=== PATIENT | male | born 1955 | race African-American/Black ===

== ENCOUNTER 2017-02-15 14:50 | Emergency (ER) | payer MEDICAID, OTHER ==
[~2017-02-15] VITALS: Ht 182.9 cm; Wt 66.7 kg
[2017-02-15] MEDS ORDERED: METFORMIN HCL1000 M1 ORAL ×2 (14:59→21:30)
[2017-02-15] MEDS ORDERED: GLIPIZIDE5 MG ORAL (14:59)
[2017-02-15] MEDS ORDERED: LANTUS SOL100 UNIT/1 SUBQ (14:59)
[2017-02-15] MEDS ORDERED: NS 250 ML IV ONE (15:11)
[2017-02-15] MEDS ORDERED: Albuterol ud Inhalation HHN ONE ×3 (15:15→20:15)
[2017-02-15] MEDS ORDERED: Ipratropium 0.02% Inh Soln 2.5ml UD HHN ONE (15:15)
--- NOTE | 2017-02-15 15:21 | Emergency Room Report ---
History of Present Illness General Chief Complaint: Dyspnea/Respdistress Source: Patient Present Illness HPI The patient presents with chest pain shortness of breath. This began when he returned from [facility] in [place] by airplane. He also had vomiting and diarrhea that is just gotten better today. There is occurred for approximately 3 days. He's had chills. He complains of a headache. The chest pain is not exertional. He does feel orthopnea get short of breath when he is laying down. He is using an inhaler which has helped somewhat. Is a history of asthma. He denies any fevers. He feels some dizziness with standing. He has had prednisone in the past. This is not his worst attack. His pain in his chest is 6/10 and pressure. In addition, he has had muscle pain in his upper back. Factors hypertension, diabetes. His blood sugars have been slightly out of control she feels. He does not smoke a. Get exercise treadmill 6 months ago and he says that this was good. He does feel his heart speeding up which is different than what is had asthma attacks in the past. Allergies: Coded Allergies: No Known Allergies (Unverified , 02/15/17) Patient History Past Medical History: see triage record Social History: Denies: smoking Social History Narrative born in [facility] Reviewed Nursing Documentation: PMH: Agreed, PSxH: Agreed Nursing Documentation-PM Past Medical History: No History, Except For Hx Asthma: Yes Hx Diabetes: Yes Review of Systems All Other Systems: negative except mentioned in HPI Physical Exam Vital Signs Date Time Temp Pulse Resp B/P Pulse Ox O2 Delivery O2 Flow Rate FiO2 02/15/17 14:55 98.4 89 16 140/94 97 Room Air Sp02 EP Interpretation: reviewed, normal General Appearance: well appearing, no apparent distress, GCS 15 Head: normocephalic Eyes: bilateral eye PERRL, bilateral eye normal inspection ENT: moist mucus membranes Neck: supple Respiratory: lungs clear, wheezing - minimal anteriorly, expiration Cardiovascular #1: regular rate, rhythm Cardiovascular #2: 2+ radial (R) Gastrointestinal: normal inspection, normal bowel sounds, non tender, no mass, non-distended Musculoskeletal: back normal, gait/station normal, normal range of motion Neurologic: alert, oriented x3, grossly normal Psychiatric: mood/affect normal Skin: normal inspection, warm/dry Medical Decision Making Diagnostic Impression: Primary Impression: Asthma Additional Impression: Viral syndrome ER Course Patient with history of asthma presents with shortness of breath and chest pain. This was factors for cardiac disease in been to exclude acute myocardial infarction. In addition he is at risk for exacerbation of his asthma and we need to exclude pneumonia. Other possibilities are bronchitis and viral syndrome. The GI symptomatology seems to be any better. Evaluation will be with EKG, chest x-ray and labs. The patient will be treated with albuterol and Atrovent. Off on Solu-Medrol until we get electrolytes back and see EKG and chest x-ray. Because his risk factors there is a lower threshold to have him admitted for observation. Patient improved and wants to go home. Recent treadmill (6 months) and angio 1 1/2 years ago = normal. Patient stable for outpatient observation and treatment Laboratory Tests Test 02/15/17 15:30 02/15/17 17:05 White Blood Count 6.0 K/UL (4.8-10.8) Red Blood Count 4.36 M/UL (4.70-6.10) L Hemoglobin 13.2 G/DL (14.2-18.0) L Hematocrit 40.0 % (42.0-52.0) L Mean Corpuscular Volume 92 FL (80-99) Mean Corpuscular Hemoglobin 30.2 PG (27.0-31.0) Mean Corpuscular Hemoglobin Concent 33.0 G/DL (32.0-36.0) Red Cell Distribution Width 12.5 % (11.6-14.8) Platelet Count 144 K/UL (150-450) L Mean Platelet Volume 6.1 FL (6.5-10.1) L Neutrophils (%) (Auto) 44.2 % (45.0-75.0) L Lymphocytes (%) (Auto) 38.0 % (20.0-45.0) Monocytes (%) (Auto) 12.7 % (1.0-10.0) H Eosinophils (%) (Auto) 3.5 % (0.0-3.0) H Basophils (%) (Auto) 1.5 % (0.0-2.0) Prothrombin Time 10.0 SEC (9.30-11.50) Prothrombin Time INR 1.0 (0.9-1.1) PTT 26 SEC (23-33) Urine Color Pale yellow Urine Appearance Clear Urine pH 7 (4.5-8.0) Urine Specific [place] 1.010 (1.005-1.035) Urine Protein Negative (NEGATIVE) Urine Glucose (UA) Negative (NEGATIVE) Urine Ketones Negative (NEGATIVE) Urine Occult Blood Negative (NEGATIVE) Urine Nitrite Negative (NEGATIVE) Urine Bilirubin Negative (NEGATIVE) Urine Urobilinogen Normal MG/DL (0.0-1.0) Urine Leukocyte Esterase Negative (NEGATIVE) Sodium Level 138 mEQ/L (135-145) Potassium Level 3.4 mEQ/L (3.4-4.9) Chloride Level 95 mEQ/L (98-107) L Carbon Dioxide Level 28 mEQ/L (20-30) Anion Gap 15 (5-15) Blood Urea Nitrogen 8 mg/dL (7-23) Creatinine 1.2 mg/dL (0.7-1.2) Estimate Glomerular Filtration Rate > 60 mL/min (>60) Glucose Level 138 mg/dL (74-106) H Lactic Acid Level 2.10 mmol/L (0.66-2.22) 1.90 mmol/L (0.66-2.22) Calcium Level 8.5 mg/dL (8.6-10.2) L Total Bilirubin 0.3 mg/dL (0.0-1.2) Aspartate Amino Transferase (AST) 74 U/L (5-40) H Alanine Aminotransferase (ALT) 43 U/L (3-41) H Alkaline Phosphatase 53 U/L (40-129) Troponin I < 0.30 ng/mL (<=0.30) Pro-B-Type Natriuretic Peptide 275 pg/mL (0-125) H Total Protein 6.9 g/dL (6.6-8.7) Albumin 3.7 g/dL (3.5-5.2) Globulin 3.2 g/dL Albumin/Globulin Ratio 1.1 (1.0-2.7) EKG Diagnostic Results Rate: normal Rhythm: NSR ST Segments: no acute changes - LAD, NSSTTW changes Rhythm Strip Diag. Results EP Interpretation: yes Rhythm: NSR, no PVC's, no ectopy Chest X-Ray Diagnostic Results Chest X-Ray Ordered: Yes Status: improved Disposition: HOME, SELF-CARE Condition: Improved Maikol Pena M.D. Feb 15, 2017 15:21
[2017-02-15 15:37] VITALS: BP 140/94
[2017-02-15 16:32] LABS: BASOPHILS % (AUTO) 1.5 % (0.0-2.0); EOSINOPHILS % (AUTO) 3.5 % (0.0-3.0); MEAN CORPUSCULAR HEMOGLOBIN 30.2 PG (27.0-31.0); MEAN CORPUSCULAR VOLUME 92 FL (80-99); MEAN PLATELET VOLUME 6.1 FL (6.5-10.1); MONOCYTES % (AUTO) 12.7 % (1.0-10.0); NEUTROPHILS % (AUTO) 44.2 % (45.0-75.0); PLATELET COUNT 144 K/UL (150-450); RED BLOOD COUNT 4.36 M/UL (4.70-6.10); RED CELL DISTRIBUTION WIDTH 12.5 % (11.6-14.8)
--- NOTE | 2017-02-15 16:44 | Diagnostic Imaging Report ---
Indication: DYSPNEA Technique: One view of the chest Comparison: none Findings: Lungs and pleural spaces are clear. Heart size is normal. The aorta is tortuous and calcified Impression: No acute process
[2017-02-15 16:49] LABS: ALANINE AMINOTRANSFERASE 43 U/L (3-41); ALBUMIN/GLOBULIN RATIO 1.1 (1.0-2.7); ANION GAP 15 (5-15); ASPARTATE AMINO TRANSFERASE 74 U/L (5-40); CALCIUM 8.5 mg/dL (8.6-10.2); CARBON DIOXIDE 28 mEQ/L (20-30); CHLORIDE 95 mEQ/L (98-107); CREATININE 1.2 mg/dL (0.7-1.2); GLOMERULAR FILTRATION RATE > 60 mL/min (>60); HEMOLYSIS 11; POTASSIUM 3.4 mEQ/L (3.4-4.9); SODIUM 138 mEQ/L (135-145); TOTAL PROTEIN 6.9 g/dL (6.6-8.7)
[2017-02-15 16:50] LABS: TROPONIN I < 0.30 ng/mL (<=0.30)
[2017-02-15 16:57] LABS: REFLEX LACTIC ACID YES OR NO YES
[2017-02-15 17:42] LABS: APPEARANCE,URINE CLEAR; KETONES,URINE NEGATIVE (NEGATIVE); LEUKOCYTE ESTERASE ,URINE NEGATIVE (NEGATIVE); NITRITE,URINE NEGATIVE (NEGATIVE); PH,URINE 7 (4.5-8.0); PROTEIN,URINE NEGATIVE (NEGATIVE); UROBILINOGEN,URINE NORMAL MG/DL (0.0-1.0)
[2017-02-15 18:07] VITALS: BP 146/91
[2017-02-15] MEDS ORDERED: fentaNYL 100 mcg/2 mL IV ONE (18:30)
[2017-02-15] MEDS ORDERED: ACETAMINOPHEN-1 EAC1 ORAL (21:30)
[2017-02-15] MEDS ORDERED: QVAR7.3 GM INH (21:30)
[2017-02-15] MEDS ORDERED: GLUCOTROL10 MG ORAL (21:30)
[2017-02-15] MEDS ORDERED: ALBUTEROL SULF8.5 GM INH (21:30)
[2017-02-15 21:35] VITALS: BP 131/83
--- NOTE | 2017-02-18 20:20 | Cardiology Report ---
APPROVED REPORT EKG Measurement Heart [id number] [place] [id number] Normal sinus rhythm Left axis deviation Nonspecific T wave abnormality Abnormal ECG
== END 2017-02-15 21:35 | disposition home or self-care (01) ==
LOC: EMR 15:25 → CANBEDREQ 21:22 → EMR 21:35
DX: J45.909 Unspecified asthma, uncomplicated (principal); B34.9 Viral infection, unspecified; E11.9 Type 2 diabetes mellitus without complications
CPT/HCPCS: 36415; 71010; 80053; 81003; 83605; 83880; 84484; 85025; 85610; 85730; 93005; 94640; 96360; 96361; 96374; 96375; 99284; J2405; J3010

== ENCOUNTER 2017-09-28 05:01 | Inpatient (IN) | payer MEDICAID, OTHER ==
[2017-09-28] VITALS (8 sets, daily range): BP systolic 119–170; BP diastolic 60–101
[~2017-09-28] VITALS: Ht 182.9 cm; Wt 104.3 kg
[~2017-09-28 05:01] MED LIST: ACETAMINOPHEN-1 EAC1 ORAL; ALBUTEROL SULF8.5 GM INH; GLIPIZIDE5 MG ORAL; GLUCOTROL10 MG ORAL; LANTUS SOL100 UNIT/1 SUBQ; METFORMIN HCL1000 M1 ORAL; QVAR7.3 GM INH
[2017-09-28] MEDS: Nitroglycerin Subl 0.4mg tab SL PRN ×3 (05:38→05:48)
[2017-09-28 05:42] LABS: BASOPHILS % (AUTO) 1.2 % (0.0-2.0); EOSINOPHILS % (AUTO) 3.9 % (0.0-3.0); HEMATOCRIT 39.5 % (42.0-52.0); LYMPHOCYTES % (AUTO) 40.1 % (20.0-45.0); MEAN CORPUSCULAR VOLUME 91 FL (80-99); MONOCYTES % (AUTO) 10.7 % (1.0-10.0); NEUTROPHILS % (AUTO) 44.2 % (45.0-75.0); PLATELET COUNT 156 K/UL (150-450); RED BLOOD COUNT 4.33 M/UL (4.70-6.10); WHITE BLOOD COUNT 6.2 K/UL (4.8-10.8)
[2017-09-28] MEDS ORDERED: LORazepam Inj 2mg/ml 1ml IV ONE (06:00)
[2017-09-28 08:14] LABS: ALANINE AMINOTRANSFERASE 58 U/L (12-78); ANION GAP 12 mmol/L (5-15); ASPARTATE AMINO TRANSFERASE 55 U/L (15-37); BILIRUBIN,TOTAL 0.2 MG/DL (0.2-1.0); BLOOD UREA NITROGEN 15 mg/dL (7-18); CALCIUM 9.2 MG/DL (8.5-10.1); CARBON DIOXIDE 26 MMOL/L (21-32); CHLORIDE 103 MMOL/L (98-107); CKMB 1.3 NG/ML (0.0-3.6); CREATINE KINASE 339 U/L (26-140); CREATININE 1.5 MG/DL (0.55-1.30); POTASSIUM 4.3 MMOL/L (3.5-5.1); SODIUM 141 MMOL/L (136-145)
[2017-09-28 08:15] LABS: ALBUMIN 3.6 G/DL (3.4-5.0); ALBUMIN/GLOBULIN RATIO 0.9 (1.0-2.7); ALKALINE PHOSPHATASE 52 U/L (46-116)
[2017-09-28 09:15] LABS: APPEARANCE,URINE CLEAR; BILIRUBIN, URINE NEGATIVE (NEGATIVE); GLUCOSE, URINE (UA) NEGATIVE (NEGATIVE); KETONES,URINE 2+ (NEGATIVE); LEUKOCYTE ESTERASE ,URINE 1+ (NEGATIVE); NITRITE,URINE NEGATIVE (NEGATIVE); PH,URINE 5 (4.5-8.0); PROTEIN,URINE 2+ (NEGATIVE); UROBILINOGEN,URINE 1 MG/DL (0.0-1.0)
[2017-09-28 09:24] LABS: COLOR,URINE YELLOW
--- NOTE | 2017-09-28 10:52 | Diagnostic Imaging Report ---
Indication: Chest pain Technique: One view of the chest Comparison: 02/15/2017 Findings: No acute infiltrates, effusions, or congestion. Tortuous calcified aorta. Normal heart size. Upper mediastinum unremarkable. The aorta is tortuous and calcified. No significant interim change Impression: No acute process.
[2017-09-28] MEDS ORDERED: PANTOPRAZOLE SO40 MG ORAL (12:09)
[2017-09-28] MEDS ORDERED: PREDNISONE2.5 MG ORAL (12:09)
[2017-09-28] MEDS ORDERED: TAMSULOSIN HCL0.4 MG ORAL (12:09)
--- NOTE | 2017-09-28 15:52 | Cardiology Report ---
APPROVED REPORT EKG Measurement Heart [id number] [place] [id number] Sinus tachycardia Left axis deviation Normal ECG
[2017-09-28 16:38] LABS: CHOLESTEROL 231 MG/DL (< 200); HDL CHOLESTEROL 68 MG/DL (40-60); TRIGLYCERIDES 131 MG/DL (30-150)
[2017-09-28] MEDS: Aspirin Baby 81mg ORAL SCH (16:45)
[2017-09-28] MEDS: GlipiZIDE 10mg tab ORAL SCH (16:45)
[2017-09-28] MEDS: NovoLOG Insulin Flexpen SUBQ SCH ×2 (16:48→21:00)
[2017-09-28] MEDS ORDERED: NovoLOG Insulin Flexpen SUBQ SCH (16:50)
[2017-09-28] MEDS: metFORMIN 500mg tab ORAL SCH (18:27)
[2017-09-28] MEDS ORDERED: Tamsulosin 0.4mg cap ORAL SCH (21:00)
[2017-09-28] MEDS ORDERED: Levemir Flexpen SUBQ SCH (21:00)
[2017-09-28] MEDS: Metoprolol 25mg tab ORAL SCH (21:49)
[2017-09-29] VITALS: BP 152/93
--- NOTE | 2017-09-29 01:01 | Emergency Room Report ---
History of Present Illness General Chief Complaint: Chest Pain Source: Patient Present Illness HPI Is a 62-year-old male who has a history diabetes and high blood pressure. He presents with chief complaint of chest pain. He said he had pain and pressure that woke him up in the left chest area. No radiation. No nausea no vomiting. He came in by car. Pain is 7/10. Never had this problem before. Does have a history of anxiety and felt some palpitation and muscle twitching. Allergies: Coded Allergies: No Known Allergies (Unverified , 02/15/17) Patient History Past Medical History: see triage record, old chart reviewed, DM, HTN Past Surgical History: none Pertinent Family History: none Social History: Denies: smoking Immunizations: other Reviewed Nursing Documentation: PMH: Agreed, PSxH: Agreed Nursing Documentation-PMH Hx Asthma: Yes Hx Diabetes: Yes Hx Cancer: No Hx Gastrointestinal Problems: No Hx Neurological Problems: No Review of Systems Eye: Denies: eye pain, blurred vision ENT: Denies: ear pain, nose congestion, throat swelling Respiratory: Denies: cough, shortness of breath Cardiovascular: Reports: chest pain, Denies: palpitations Gastrointestinal: Denies: abdominal pain, diarrhea, nausea, vomiting Musculoskeletal: Denies: back pain, joint pain Skin: Denies: rash Neurological: Denies: headache, numbness Endocrine: Denies: increased thirst, increased urine Hematologic/Lymphatic: Denies: easy bruising All Other Systems: negative except mentioned in HPI Physical Exam Vital Signs Date Time Temp Pulse Resp B/P (MAP) Pulse Ox O2 Delivery O2 Flow Rate FiO2 09/28/17 05:07 99.0 111 12 180/83 100 Room Air vitals with high blood pressure Sp02 EP Interpretation: reviewed, normal General Appearance: well appearing, no apparent distress, alert Head: normocephalic, atraumatic Eyes: bilateral eye PERRL, bilateral eye EOMI ENT: hearing grossly normal, normal pharynx Neck: full range of motion, supple, no meningismus Respiratory: chest non-tender, lungs clear, normal breath sounds Cardiovascular #1: regular rate, rhythm, no murmur Gastrointestinal: normal bowel sounds, non tender, no mass, no organomegaly, no bruit, non-distended Musculoskeletal: back normal, gait/station normal, normal range of motion Psychiatric: mood/affect normal Skin: warm/dry Medical Decision Making Diagnostic Impression: Primary Impression: Chest pain Qualified Codes: R07.9 - Chest pain, unspecified Additional Impression: Hypertension Qualified Codes: I10 - Essential (primary) hypertension ER Course Patient presents with atypical chest pain. He does have multiple risk factor in his age, sex, high blood pressure, diabetes and obesity. Troponin negative. Will admit for further workup. I discussed the case with Dr. Colorado who will admit. Lab Results Impression labs unremarkable EKG Diagnostic Results Rate: normal Rhythm: NSR ST Segments: no acute changes ASA given to the pt in ED: Yes Rhythm Strip Diag. Results Rhythm Strip Time: 01:00 EP Interpretation: yes Rate: 88 Rhythm: NSR, no PVC's, no ectopy Chest X-Ray Diagnostic Results Chest X-Ray Diagnostic Results : Chest X-Ray Ordered: Yes # of Views/Limited/Complete: 1 View Indication: Chest Pain EP Interpretation: Yes Interpretation: no consolidation, no effusion, no pneumothorax, no acute cardiopulmonary disease Impression: No acute disease Electronically Signed by: Miguel Newsome MD Last Vital Signs Date Time Temp Pulse Resp B/P (MAP) Pulse Ox O2 Delivery O2 Flow Rate FiO2 09/28/17 21:49 74 159/98 09/28/17 20:00 98.0 18 98 09/28/17 16:00 Room Air Status: improved Disposition: ADMITTED INPATIENT Condition: Serious Referrals: [facility],REFERRING (PCP) MIGUEL NEWSOME M.D. Sep 29, 2017 01:01
[2017-09-29 04:00] VITALS: BP 139/90
[2017-09-29] MEDS: NovoLOG Insulin Flexpen SUBQ SCH ×2 (06:19→12:03)
[2017-09-29] MEDS: GlipiZIDE 10mg tab ORAL SCH (06:19)
[2017-09-29 08:00] VITALS: BP 136/95
[2017-09-29] MEDS: metFORMIN 500mg tab ORAL SCH (08:41)
[2017-09-29] MEDS: Aspirin Baby 81mg ORAL SCH (08:41)
[2017-09-29] MEDS: Metoprolol 25mg tab ORAL SCH (08:41)
[2017-09-29] MEDS ORDERED: Lisinopril 20mg tab ORAL SCH (09:00)
[2017-09-29 12:00] VITALS: BP 136/96
--- NOTE | 2017-09-29 23:05 | History and Physical Report ---
DATE OF CONSULTATION: 09/28/2017 REASON FOR CARDIOLOGY CONSULTATION: Chest pain. REQUESTING - JOSE MARTIN OAKES M.D. HISTORY OF PRESENT ILLNESS: This is a 62-year-old male with several risk factors for premature coronary disease including hypertension and diabetes as well as hyperlipidemia. He presented to the hospital complaining of chest pain. It awoke him from sleep. He came to the emergency room where his initial EKG revealed sinus rhythm with nonspecific ST changes and troponin #1 was normal. The patient did have similar symptoms about two years ago. He has had an abnormal stress test with subsequent cardiac catheterization that he reports as normal. SOCIAL HISTORY: Notable for significant alcohol intake according to his son, a bottle of gin nightly. No smoking or substance abuse. REVIEW OF SYSTEMS: Otherwise, unremarkable. PHYSICAL EXAMINATION: VITAL SIGNS: Blood pressure 137/79 to 170/86, heart rate 179, respiratory rate 17 and afebrile. LUNGS: Clear. CARDIAC: Regular. Normal S1 and S2. ABDOMEN: Soft. EXTREMITIES: No edema. IMPRESSION: 1. Acute coronary syndrome. 2. Hyperlipidemia. 3. Chronic kidney disease. 4. Hypertensive heart disease with labile blood pressure. 5. Type 2 diabetes mellitus. 6. Moderate alcohol abuse. PLAN: 1. Cardiac monitoring. 2. Serial troponin. 3. Optimize antihypertensive medications. 4. Resume statin therapy. 5. Continue aspirin long-term. 6. We will consider further diagnostic studies based on clinical course, however, in view of his relatively recent cardiac catheterization this may not be necessary. Maikol Colorado M.D. DR: EUSEBIO JOB#: [id number] CC: JOAN
--- NOTE | 2017-09-29 23:06 | History and Physical Report ---
DATE OF ADMISSION: 09/28/2017 CHIEF COMPLAINT: Chest pain. HISTORY OF PRESENT ILLNESS: The patient is a 62-year-old male. He has a history of diabetes and hypertension who presented with complaints of left-sided chest pain. According to the patient, he was well until the day of admission when he was awoken with left-sided chest pain that radiated to his left shoulder. He had no nausea. No vomiting. No shortness of breath. According to the patient, he has had similar episodes in the past. He states he had an angiogram and a stress test done a little over a year ago in [place] that was normal. He denies any fever or chills. He has had no cough. Denies any change in activity. No trauma. PAST MEDICAL HISTORY: As above. PAST SURGICAL HISTORY: None. CURRENT MEDICATIONS: Reconciled and reviewed. ALLERGIES: None. SOCIAL HISTORY: Negative for tobacco, ethanol, or drugs. FAMILY HISTORY: None. REVIEW OF SYSTEMS: Negative except for chest pain. PHYSICAL EXAMINATION: VITAL SIGNS: Temperature 98 degrees, pulse 76, respirations 19, and blood pressure 136/95. GENERAL: The patient is a well-developed male, in no apparent distress. HEART: Regular rate and rhythm. LUNGS: Clear. ABDOMEN: Soft, nontender, and nondistended. EXTREMITIES: Without clubbing, cyanosis, or edema. LABORATORY DATA: White count was 6, hemoglobin 13. Sodium 141, potassium 4.3, creatinine 1.5. The LDL is 146. AST of 55. Troponin was negative x3. EKG showed sinus rhythm without any acute ST-T wave changes. Chest x-ray is clear. ASSESSMENT: This is a pleasant male, admitted with complaints of chest pain. 1. Chest pain, doubt cardiac in etiology, especially in light of the patient's negative angiogram and stress test a year ago. 2. Hypertension, uncontrolled. 3. . PLAN: Serial troponins. Continue antiplatelet therapy. Followup echocardiogram. If negative, the patient likely can be discharged home. He will follow up with his PMD. The patient's statin should be adjusted for his high cholesterol. Soto Cortez M.D. DR: Samira JOB#: [id number] CC:
--- NOTE | 2017-09-30 01:45 | Progress Note ---
DATE: 09/29/2017 CARDIOLOGY PROGRESS NOTE SUBJECTIVE: No chest pain. No shortness of breath. Troponin is negative. Blood pressure parameters suboptimal, but improved. OBJECTIVE: VITAL SIGNS: Blood pressure 136/95, pulse 76, and respirations 19. NECK: Supple. LUNGS: Clear. CARDIAC: Regular. Normal S1, S2 with a fourth heart sound. ABDOMEN: Soft. EXTREMITIES: No edema. IMPRESSION: 1. Hypertensive urgency, resolved. 2. Acute coronary insufficiency, stabilized. 3. Hyperlipidemia. PLAN: 1. Outpatient followup. 2. Continue titration of antihypertensives to optimize control as an outpatient. 3. Obtain prior cardiac catheterization report. If any evidence of prior coronary atherosclerosis, we will consider repeat stress testing to reassess coronary flow reserve as an outpatient. Maikol Colorado M.D. DR: JAVON JOB#: [id number] CC:
--- NOTE | 2017-09-30 10:36 | Cardiology Report ---
APPROVED REPORT EXAM: Two-dimensional and M-mode echocardiogram with Doppler and color Doppler. INDICATION Coronary artery disease M-Mode DIMENSIONS IVSd1.4 (0.7-1.1cm)Left Atrium (MM)3.8 (1.6-4.0cm) LVDd3.0 (3.5-5.6cm)Aortic Root3.2 (2.0-3.7cm) PWd1.4 (0.7-1.1cm)Aortic Cusp Exc.1.6 (1.5-2.0cm) LVDs1.5 (2.5-4.0cm) PWs2.0 cm Normal left ventricular chamber size, systolic function and wall motion. Left ventricular ejection fraction estimated to be 55-60 %. Mild left ventricular hypertrophy. Anterior Echo-free space, may be due to pericardial fat or effusion. All other cardiac chamber sizes are within normal limits. Focal aortic valve sclerosis with adequate cusp excursion. Thickened mitral valve leaflets with normal excursion. Mild mitral annulus and aortic root calcification. Pulmonic valve not well visualized. Normal tricuspid valve structure. IVC measures at 1.7 with physiological collapse. A color flow and spectral Doppler study was performed and revealed: No aortic insufficiency. No mitral regurgitation. Mitral diastolic velocities suggest mild left ventricular diastolic dysfunction (Grade I). Mild tricuspid regurgitation. Tricuspid systolic velocities suggests peak right ventricular systolic pressure of 29 mmHg. Trace pulmonic regurgitation present.
--- NOTE | 2017-10-02 12:55 | Discharge Summary ---
Discharge Summary Hospital Course Date of Admission Sep 28, 2017 at 06:20 Date of Discharge Sep 29, 2017 at 14:40 Admitting Diagnosis chest pain HPI Chandra Smith is a 62 year old male who was admitted on Sep 28, 2017 at 06:20 for Chest Pain Hospital Course dc summary #[id number] Discharge Medications Continued Medications: Acetaminophen With Codeine (T#3) (Tylenol #3 Tab*) Y Tab 1 TAB ORAL Q4H PRN for cough or pain, #10 TAB Albuterol Sulfate* (Albuterol Sulfate Mdi*) 8.5 Gm Hfa.aer.ad 2 PUFF INH Q4H PRN for wheezing, #1 EA 1 Refill Beclomethasone Dipropionate 40MCG Oral Inh (Qvar 40*) 7.3 Gm Aer.w.adap 2 PUFFS INH TWICE A DAY PRN for wheezing, #1 UNIT 0 Refills Glipizide* (Glucotrol*) 10 Mg Tablet 10 MG ORAL BID, #15 TAB 0 Refills Insulin Glargine (Lantus) 100 Unit/1 Ml Insuln.pen 12 SUBQ AC, #1 EA 0 Refills Metformin Hcl* (Metformin Hcl*) 1,000 Mg Tablet 1000 MG ORAL BID, #30 TAB Pantoprazole* (Pantoprazole*) 40 Mg Tablet.dr 40 MG ORAL DAILY, TAB Prednisone* (Prednisone*) 2.5 Mg Tablet 2.5 MG ORAL DAILY, #10 TAB 0 Refills Tamsulosin Hcl (Tamsulosin Hcl*) 0.4 Mg Cap.er.24h 0.4 MG ORAL BEDTIME, CAP Discharge Condition Upon Discharge: stable Discharge Disposition Patient was discharged to Home () Discharge Diagnoses: Discharge Instructions Discharge Instructions Special Instructions I have been assigned to complete a D/C Summary on this account. I was not involved in the patient management Angela Rodriguez NP (Vanchtein) Oct 02, 2017 12:55
--- NOTE | 2017-10-03 02:31 | Discharge Summary 2 SIG ---
DATE OF ADMISSION: 09/28/2017 DATE OF DISCHARGE: 09/29/2017 REASON FOR ADMISSION: 62-year-old male with a past medical history significant for hypertension, diabetes, and asthma, presented to emergency department for evaluation due to the left-sided chest pain. On the day of admission, he woke up with left-sided chest pain radiating to his left shoulder. He denied nausea, vomiting, or shortness of breath. According to the patient, he had similar episodes in the past. The patient stated he had angiogram and a stress test about a year ago in [facility], which were normal. He denied fever or chills. No cough. No change in activities. No trauma. Workup in the emergency room revealed negative troponin. Stable electrolytes. Blood pressure on admission was 180/83. Creatinine -1.5. No leukocytosis. Stable hemoglobin and hematocrit. EKG showed sinus rhythm without evidence of acute ischemic changes. LDL was 146. Chest x-ray revealed no acute cardiopulmonary pathology. The patient was admitted with diagnosis of chest pain, rule out acute coronary syndrome and hypertensive urgency. HOSPITAL COURSE: The patient was admitted to telemetry floor. Cardiology consult was requested. Serial troponin x3 were negative. EKG revealed no acute ischemic changes. Therefore, the patient was ruled out for acute myocardiac infarction. Lipid panel revealed elevated total cholesterol of 231 and elevated LDL of 146. The patient was started on statin. The patient was educated on diabetic , low fat low cholesterol diet. Antiplatelet therapy with aspirin was resumed. Blood pressure was managed with multiple regimen of antihypertensive medication including beta-jada, ALLEY inhibitor, and calcium channel jada. Blood pressure was controlled prior to discharge. Echocardiogram revealed preserved ejection fraction of 55% to 60%, right ventricular systolic pressure of 29 and evidence of left ventricular hypertrophy. Blood sugar was managed with the current regimen and remains stable. Chest pain was likely secondary to hypertensive urgency. Pain management was addressed. Chest pain resolved with stabilization of blood pressure. Bowel regimen instituted. DVT prophylaxis provided. The patient was stable for discharge home. The patient was encouraged on compliance with the medication regimen. Due to the rapid and unexpected improvement in the patient's condition, the patient was discharged in one day. FINAL DIAGNOSES: 1. Chest pain likely secondary to hypertensive urgency, resolved. 2. Hypertensive urgency, resolved. 3. Diabetes mellitus. 4. Hypercholesterolemia. 5. Hypertensive heart disease with labile blood pressure. 6. Chronic kidney disease. DISCHARGE MEDICATIONS: See medication reconciliation list. DISCHARGE INSTRUCTIONS: The patient was discharged home. Follow up with the primary medical doctor next week. Soto Cortez M.D. I have been assigned to dictate discharge summary on this account and I was not involved in the patient's management. Angela reyescecy NRobin DR: TUSHAR JOB#: [id number] CC: JOAN
== END 2017-09-29 14:40 | disposition home or self-care (01) | DRG 199 ==
LOC: EMR 05:45 → 2E 06:20 → EDBEDREQ 11:56 → 2E 13:00
DX: I16.0 Hypertensive urgency (principal); E11.22 Type 2 diabetes mellitus with diabetic chronic kidney disease; I13.10 Hypertensive heart and chronic kidney disease without heart failure, with stage 1 through stage 4 chronic kidney disease, or unspecified chronic kidney disease; R07.89 Other chest pain; E78.5 Hyperlipidemia, unspecified; N18.9 Chronic kidney disease, unspecified; F10.10 Alcohol abuse, uncomplicated; J45.909 Unspecified asthma, uncomplicated
CPT/HCPCS: 36415; 71045; 80053; 80061; 81003; 82550; 82553; 82962; 84484; 85025; 93005; 93306; 99285; J1815; S5561